=== PATIENT | female | born 1950 | race Caucasian/White ===

== ENCOUNTER → 2017-10-24 | Outpatient (CLI) | payer MEDICARE | END | disposition home or self-care (01) | LOC: LAB EV 15:01 → LAB SHORT 15:01 | DX: N39.0 Urinary tract infection, site not specified (principal) | CPT/HCPCS: 87086 ==

== ENCOUNTER → 2017-12-13 | Outpatient (CLI) | payer MEDICARE | LOC: LAB EV 15:18 → LAB SHORT 15:18 | DX: R30.0 Dysuria (principal) | CPT/HCPCS: 87086 ==

== ENCOUNTER → 2018-05-21 | Outpatient (CLI) | payer OTHER | END | disposition home or self-care (01) | LOC: LAB EV 18:15 → LAB SHORT 18:15 | DX: R31.9 Hematuria, unspecified (principal) | CPT/HCPCS: 87077; 87086; 87186 ==

== ENCOUNTER 2019-01-15 11:45 | Inpatient (IN) | payer OTHER ==
[~2019-01-15] VITALS: Ht 162.6 cm; Wt 72.5 kg
[~2019-01-15 11:45] MED LIST: ASPI81CH PO; NAPR500 PO; TRAM50 PO
--- NOTE | 2019-01-16 06:34 | NUR ---
BROUGHT INTO SDS ADMISSION STARTED TO UNIT. Ambulatory in Day Surgery History, Chart, Medications and Allergies reviewed before start of procedure.Lungs clear T/O to Auscultation. Patient confirms NPO status and agrees with scheduled surgery.
--- NOTE | 2019-01-16 11:29 | NUR ---
ASSUMED CARE OF PACU PATIENT AT 1120. REPORT RECEIVED FROM ALVARO URRUTIA AND ALVARO PICHARDO.
--- NOTE | 2019-01-16 18:14 | NUR ---
SHIFT SUMMARY PT TOLERATING SMALL AMT OF FOOD. PT DID HAVE SMALL AMT OF EMESIS TODAY. PT HAD PROCEDURE TODAY. PT BEEN MED FOR PAIN AND NAUSEA. PT BEEN ASSISTED WITH ADL'S PRN. PT FAMILY IN ROOM. PT WORKED WITH THERAPY EARLIER TODAY.
--- NOTE | 2019-01-16 19:44 | NUR ---
PT UP TO BATHROOM, VOIDED. PT TOOK SHORT WALK IN HALLWAY WITH SBA WITH WALKER AND GAIT BELT. HS RN UPDATED ON PT VOIDING.
--- NOTE | 2019-01-17 05:33 | NUR ---
SUMMARY POD #1 LEFT BILLY SMALL AMOUNT OF DRAINAGE PRESENT NOTED ON DRSG, REMAINS INTACT, CIRC WNL, 1 ASSIST TO THE BATHROOM USING FWW/GAIT BELT. TOLERATING PO INTAKE, PAIN MANAGED PER EMAR WITH MINIMAL PAIN MEDS. VOIDING WNL. IS AT THE BEDSIDE AND ASSISTS WITH CARE. CALL LIGHT IS IN REACH. TM
--- NOTE | 2019-01-17 12:37 | NUR ---
OFF 02 AFTER BATHROOM. SATS AT 86%. PLACED ON 1L NASAL CANULA. ENCOURAGED PT TO DEEP BREATH, COUGH, AND USE INCENTIVE SPIROMETER. SATS BACK TO 92% ON 1L
--- NOTE | 2019-01-17 14:04 | NUR ---
CALLED DR. ELIZONDO R/T DESATURATIONS, ORDERED A MED CONSULT. DR GREEN CALLED FOR CONSULT AND GIVEN REPORT.
[2019-01-17 14:37] LABS: BASOPHILS ABSOLUTE AUTO 0.02 K/mm3 (0.00-0.23); BASOPHILS PERCENT AUTO 0 % (0-2); EOSINOPHILS ABSOLUTE AUTO 0.21 K/mm3 (0.00-0.68); EOSINOPHILS PERCENT AUTO 3 % (0-6); Hematocrit 35.1 % (33.0-51.0); Hemoglobin 11.7 g/dL (11.5-16.0); IMMATURE GRAN ABSOLUTE AUTO 0.02 K/mm3 (0.00-0.10); IMMATURE GRAN PERCENT AUTO 0 % (0-1); LYMPHOCYTES ABSOLUTE AUTO 1.62 K/mm3 (0.84-5.20); LYMPHOCYTES PERCENT AUTO 19 % (21-46); MONOCYTES ABSOLUTE AUTO 0.75 K/mm3 (0.16-1.47); MONOCYTES PERCENT AUTO 9 % (4-13); Mean Corpuscular HGB 33.6 pg (26.0-34.0); Mean Corpuscular HGB Conc 33.3 g/dL (31.5-36.5); Mean Corpuscular Volume 101 fL (80-100); Mean Platelet Volume 10.1 fL (9.1-12.4); NEUTROPHILS PERCENT AUTO 69 % (41-73); Platelet Count 195 K/mm3 (150-400); RDW Coefficient Variation 11.8 % (11.7-14.2); RDW Standard Deviation 43.3 fL (35.1-46.3); Red Blood Cell Count 3.48 M/mm3 (3.80-5.20); White Blood Cell Count 8.42 K/mm3 (4.00-11.30)
[2019-01-17 14:56] LABS: Alanine Aminotransfer (ALT/SGP 37 U/L (12-78); Albumin, Blood 2.8 g/dL (3.4-5.0); Albumin/Globulin Ratio 0.8 (0.8-1.8); Alk Phos 55 U/L (50-136); Anion Gap 2 mmol/L (6-16); Aspartate Aminotrans (AST/SGOT 70 U/L (12-37); Bilirubin, Total 0.3 mg/dL (0.1-1.0); Blood Urea Nitrogen 10 mg/dL (8-24); CO2, Blood 30 mmol/L (21-32); Calcium, Blood 8.2 mg/dL (8.5-10.1); Chloride, Blood 107 mmol/L (98-108); Creatinine, Blood 0.67 mg/dL (0.40-1.00); Globulin, Blood 3.4 g/dL (2.2-4.0); Glomerular Filtration Rate >60 (60-); Glucose, Blood 115 mg/dL (70-99); Magnesium, Blood 1.9 mg/dL (1.6-2.4); Phosphorus, Blood 3.2 mg/dL (2.5-4.9); Potassium, Blood 4.5 mmol/L (3.5-5.5); Sodium, Blood 139 mmol/L (136-145); Total Protein, Blood 6.2 g/dL (6.4-8.2)
--- NOTE | 2019-01-17 15:37 | NUR ---
SHIFT SUMMARY PAIN MANAGED WITH PO PAIN MEDICATION. PT DESATURATING WITH ACTIVITY, HOME O2 EVAL ORDERED AND PT WILL NEED 5L HOME O2 WITH ACTIVITY PER RT. PHYSICAL THERAPY NOTIFIED THAT HOME O2 EVAL IS COMPLETE SO PT CAN BE EVALUATED BY THERAPY. VSS. REPORT GIVEN TO ADAMA JOHN.
--- NOTE | 2019-01-17 15:51 | NUR ---
DR. GREEN INTO SEE PT. PLAN FOR 02 USE DURING EXERTION, WILL DISCHARGE WITH HOME 02 IF PT CLEARS THERAPY.
--- NOTE | 2019-01-17 16:24 | NUR ---
POD [address] SCANT SS DRAINAGE. PATIENT UNABLE TO WORK WITH THERAPY THIS AM WITH SATS DROPING INTO THE 80'S WITH EXERTION. MEDICAL CONSULT CALLED AND HOME 02 EVAL DONE. PLAN IS FOR 5L 02 WITH EXERTION AND DISCHARGE HOME WITH OXYGEN. PLAN IS TO DISCHARGE TONIGHT. VSS AT REST. PATIENT ALERT AND ORIENTED. TOLERATING PO WELL. PAIN MANAGED WITH COLD PACK AND PER EMAR. PATIENT AMBULATED WELL DURING SHIFT WITH FWW AND GB. IN ROOM DURING SHIFT.
[2019-01-17] MEDS ORDERED: OXYC5 PO (17:01)
[2019-01-17] MEDS ORDERED: ACET500 PO (17:02)
--- NOTE | 2019-01-17 18:05 | NUR ---
PT DISCHARGE TO HOME VIA WHEELCHAIR WITH . DISCHARGE INSTRUCTIONS GONE OVER WITH PATIENT AND , STATED UNDERSTANDING. DISCHARGE INSTRUCTIONS AND EXTRA DRESSINGS WITH PATIENT.
== END 2019-01-17 17:58 | disposition home or self-care (01) | DRG 470 ==
LOC: SURS 01-16 05:50 → PRE IP 01-16 07:30 → SURS 01-16 11:45
PROVIDERS: Hospitalist; ADMIT Orthopaedic Surgery
PROC: 0SRB04A Replacement of Left Hip Joint with Ceramic on Polyethylene Synthetic Substitute, Uncemented, Open Approach (ICD-10-PCS; principal; 2019-01-16 07:30)
DX: M16.12 Unilateral primary osteoarthritis, left hip (principal); J43.9 Emphysema, unspecified; R09.02 Hypoxemia; Z87.891 Personal history of nicotine dependence; Z79.1 Long term (current) use of non-steroidal anti-inflammatories (NSAID); Z79.82 Long term (current) use of aspirin
CPT/HCPCS: 36415; 71046; 72170; 80053; 83735; 83880; 84100; 85025; 86850; 86900; 86901; 88300; 94761; 97110; 97116; 97161; 97530; C1776; J0171; J0690; J0735; J1885; J2250; J2370; J2405; J2704; J2765; J2795; J3010; J7120

== ENCOUNTER → 2019-09-16 | Outpatient (CLI) | payer OTHER ==
[~2019-09-16] MED LIST changes: +ACET500 PO; +ESBRIET267 MG PO; +OMEP20ER PO; +OXYC5 PO
[2019-09-17 14:11] LABS: HPV 16 Negative (Negative); HPV 18 Negative (Negative); HPV OTHER HR TYPES Negative (Negative)
== END | disposition home or self-care (01) ==
LOC: LAB SHORT 18:26 → LAB 18:26
PROVIDERS: Nurse Practitioner
DX: Z01.419 Encounter for gynecological examination (general) (routine) without abnormal findings (principal)
CPT/HCPCS: 87624; G0123

== ENCOUNTER 2019-11-09 06:34 | Day surgery (SDC) | payer OTHER ==
[~2019-11-09] VITALS: Ht 162.6 cm; Wt 70.4 kg
--- NOTE | 2019-11-09 09:33 | NUR ---
11/09/19 0933 Brunilda Hewitt V PT USING HER OWN OXYGEN MACHINE.
== END 2019-11-09 09:29 | disposition home or self-care (01) ==
LOC: ORSCSDS 06:34
PROVIDERS: Student in an Organized Health Care Education/Training Program
PROC: 0DBH8ZX Excision of Cecum, Via Natural or Artificial Opening Endoscopic, Diagnostic (ICD-10-PCS; principal; 2019-11-09 08:00)
PROC: 0DBN8ZX Excision of Sigmoid Colon, Via Natural or Artificial Opening Endoscopic, Diagnostic (ICD-10-PCS; principal; 2019-11-09 08:00)
PROC: 0DBM8ZX Excision of Descending Colon, Via Natural or Artificial Opening Endoscopic, Diagnostic (ICD-10-PCS; principal; 2019-11-09 08:00)
PROC: 0DBK8ZX Excision of Ascending Colon, Via Natural or Artificial Opening Endoscopic, Diagnostic (ICD-10-PCS; principal; 2019-11-09 08:00)
DX: Z12.11 Encounter for screening for malignant neoplasm of colon (principal); D12.5 Benign neoplasm of sigmoid colon; D12.4 Benign neoplasm of descending colon; D12.0 Benign neoplasm of cecum; D12.2 Benign neoplasm of ascending colon; K57.30 Diverticulosis of large intestine without perforation or abscess without bleeding; F32.9 Major depressive disorder, single episode, unspecified; K21.9 Gastro-esophageal reflux disease without esophagitis; Z79.899 Other long term (current) drug therapy
CPT/HCPCS: 88305; J0461; J2405; J2704; J7120